=== PATIENT | male | born 1985 | race Caucasian/White ===

== ENCOUNTER 2018-10-08 17:27 | Emergency (ER) | payer MEDICAID, SELFPAY ==
[~2018-10-08] VITALS: Ht 177.8 cm; Wt 103.2 kg
[2018-10-08 17:33] VITALS: BP 127/77
[2018-10-08] MEDS ORDERED: ALBU6.7H INH (17:57)
== END 2018-10-08 18:14 | disposition home or self-care (01) ==
LOC: ER 17:27
DX: F15.10 Other stimulant abuse, uncomplicated (principal); F17.200 Nicotine dependence, unspecified, uncomplicated; Z02.89 Encounter for other administrative examinations; Z88.8 Allergy status to other drugs, medicaments and biological substances; Z79.899 Other long term (current) drug therapy
CPT/HCPCS: 99283

== ENCOUNTER 2022-08-09 21:27 | Emergency (ER) | payer MEDICAID ==
[~2022-08-09] VITALS: Ht 182.9 cm; Wt 145.0 kg
[~2022-08-09 21:27] MED LIST: ALBU6.7H14 INH
[2022-08-09 22:22] LABS: BASOPHILS # (AUTO) 0.1 X10'3 (0-0.2); BASOPHILS % (AUTO) 0.8 % (0-1); EOSINOPHILS # (AUTO) 0.3 X10'3 (0-0.9); EOSINOPHILS % (AUTO) 2.3 % (0-6); HEMATOCRIT 39.4 % (42.0-52.0); HEMOGLOBIN 13.3 g/dl (14.0-17.9); LYMPHOCYTES # (AUTO) 1.9 X10'3 (1.1-4.8); LYMPHOCYTES % (AUTO) 15.2 % (21-51); MEAN CORPUSCULAR HEMOGLOBIN 30.3 PG (27.0-31.0); MEAN CORPUSCULAR HGB CONC 33.8 g/dL (33.0-36.5); MEAN CORPUSCULAR VOLUME 89.7 FL (78-98); MEAN PLATELET VOLUME 8.7 FL (7.4-10.4); MONOCYTES # (AUTO) 0.8 X10'3 (0-0.9); MONOCYTES % (AUTO) 6.7 % (2-12); NEUTROPHILS # (AUTO) 9.3 X10'3 (1.8-7.7); PLATELET COUNT 257 X10'3 (140-440); RED CELL DISTRIBUTION WIDTH 13.9 % (11.5-14.5); WHITE BLOOD COUNT 12.4 X10'3 (4.5-11.0)
[2022-08-09 22:32] LABS: ALANINE AMINOTRANSFERASE 46 U/L (12-78); ALBUMIN 3.8 G/DL (3.4-5.0); ALKALINE PHOSPHATASE 91 IU/L (46-116); ANION GAP 7 (8-16); ASPARTATE AMINO TRANSFERASE 37 U/L (10-37); BILIRUBIN,TOTAL 0.6 MG/DL (0.1-1.0); BLOOD UREA NITROGEN 16 MG/DL (7-18); BUN/CREATININE RATIO 15.7 (5.4-32.0); CHLORIDE 101 MMOL/L (99-107); CREATININE 1.02 MG/DL (0.60-1.10); GLUCOSE 108 MG/DL (70-104); POTASSIUM 3.7 MMOL/L (3.5-5.1); SODIUM 138 MMOL/L (135-145); TOTAL CARBON DIOXIDE 30.4 MMOL/L (24-32); TOTAL PROTEIN 7.5 G/DL (6.4-8.2); eGFR 82 ML/MIN
--- NOTE | 2022-08-10 05:34 | NUR ---
PT. HAS BEEN SLEEPING WITH OCC. SNORING HEARD THROUGHOUT NIGHT, NO APPARENT DISTRESS NOTED. Addendum: 08/10/22 at 1758 by QIANNN Pt awake sitting up at side of bed eating his dinner. No distress noted.
--- NOTE | 2022-08-10 07:08 | NUR ---
GAVE REPORT TO ED OVERFLOW NURSE, CARE TRANSFERED.
--- NOTE | 2022-08-10 07:17 | NUR ---
This nurse assumed care from main ER. Pt. ambulated onto unit independently with a steady gait. Pt roomed to bed 21 and 1:1 done at bedside. Pt stated, "I'm feeling suicidal, I planned to hang myself." Pt. endorses A/VH stating, "the voices are insulting, they tell me not to eat food, that I'm going to be poisoned." Pt states he "blacks out," nurse asked if he passes out when this happens. Pt states, "no, i do things and i dont remember doing them."
--- NOTE | 2022-08-10 07:32 | NUR ---
Pt was asked to give his cell phone to staff. Pt became extremely agitated, yelling and stating "Im a Paranoid Schizophrenic, you're not taking my cell phone from me, I use this to keep evidence on how you guys treat me." Pt then jumped out of his bed to leave unit, security met pt. at the door and escorted him back to his bed. Pt was able to deescalate but has not given his phone to staff. Nurse to speak to doctor to obtain PRN for agitation.
--- NOTE | 2022-08-10 07:45 | NUR ---
Pt willingly gave cell phone to this nurse. Will inventory and place in registration safe.
[2022-08-10] MEDS ORDERED: quetiapine 100mg tablet PO SCH (07:50)
[2022-08-10] MEDS ORDERED: quetiapine 100mg tablet PO ONE (07:50)
--- NOTE | 2022-08-10 08:00 | NUR ---
One time order for seroquel 100mg obtained, pt sleeping at this time. Will let pt. sleep and adminsiter once he wakes up. Noted rise and fall of chest.
--- NOTE | 2022-08-10 08:35 | NUR ---
Seroquel adminsitered at this time. Pt was appreciative, stating seroquel has helped decrease his voices in the past.
[2022-08-10 10:13] LABS: CLARITY,URINE SLIGHTLY CLOUDY (Clear); COLOR,URINE STRAW (Yellow); GLUCOSE, URINE NEGATIVE (Neg); KETONES,URINE NEGATIVE (Neg); LEUKOCYTE ESTERASE ,URINE NEGATIVE (Neg); NITRITES, URINE NEGATIVE (Neg); OCCULT BLOOD,URINE NEGATIVE (Neg); PROTEIN,URINE NEGATIVE (Neg); UROBILINOGEN,URINE 0.2 E.U/dL (0.2-1.0)
--- NOTE | 2022-08-10 10:23 | NUR ---
Pt up using the restroom. No distress noted.
[2022-08-10 10:27] LABS: URINE AMPHETAMINE SCREEN POSITIVE (Neg); URINE BARBITUATE SCREEN NEGATIVE (Neg); URINE BENZODIAZEPINES SCREEN NEGATIVE (Neg); URINE CANNABINOID SCREEN POSITIVE (Neg); URINE COCAINE SCREEN NEGATIVE (Neg); URINE METHADONE SCREEN NEGATIVE (Neg); URINE OPIATE SCREEN NEGATIVE (Neg); URINE PHENCYCLIDINE SCREEN NEGATIVE (Neg)
[2022-08-10 10:35] LABS: UA COLLECTION TYPE VOIDED
[2022-08-10 10:57] LABS: SQUAMOUS EPITHELIAL CELL,UR MANY /LPF (FEW)
[2022-08-10 10:58] LABS: HYALINE CASTS 0-3 /LPF (NEGATIVE)
[2022-08-10 11:00] LABS: BACTERIA,URINE FEW /HPF (Neg); RBC,URINE 0-2 /HPF (0-2); TRANSITIONAL EPI CELLS,URINE FEW /HPF; WBC,URINE 0-4 /HPF (0-4)
--- NOTE | 2022-08-10 11:03 | NUR ---
Pt sleeping, noted rise and fall of chest as well as loud snoring.
--- NOTE | 2022-08-10 12:36 | NUR ---
Pt. sleeping at this time, noted rise and fall of chest with loud snoring.
--- NOTE | 2022-08-10 13:26 | NUR ---
Mother (César) and father (Tian) are at pt. bedside discussing patients spring encaser Naresh, taking steps to get pt. conserved.
[2022-08-10] MEDS ORDERED: LORazepam 1 MG tablet PO ONE ×2 (13:35→23:50)
[2022-08-10] MEDS ORDERED: haloperidol 5mg tablet PO ONE ×2 (13:35→23:50)
[2022-08-10] MEDS ORDERED: PALI234D IM (13:40)
--- NOTE | 2022-08-10 13:41 | NUR ---
During visitation with family pt. became very agitated and flipped his bedside table over with his lunch tray on it yelling, "get out, get out of here!" Family member escorted out of the facility. Pt. continued yelling stating, "I dont know why you guys would allow just anyone back here." Security called. Pt. calmed down almost instatly and is now sleeping. A one time order for haldol and ativan has been obtained but not administered. We'll see how pt is feeling when he wakes up. Pt mother called unit and apologized and said she was taking about Blues 12 year old brother being disciplined last night and it triggered Blue to get angry.
[2022-08-10] MEDS ORDERED: paliperidone palmitate inj 234 MG/1.5 ML SYRINGE IM SCH (14:56)
--- NOTE | 2022-08-10 15:08 | NUR ---
Pt sleeping on his backside, noted rise and fall of chest and loud snoring noted.
--- NOTE | 2022-08-10 15:34 | NUR ---
Pt Invega Alexenna reinstated, last dose was administered on June 14.
--- NOTE | 2022-08-10 15:51 | NUR ---
Pilo Johnsonenna IM injected. Pt tolerated well. No behaviors noted. Pt returned to sleeping.
--- NOTE | 2022-08-10 16:32 | NUR ---
Pt. up utilizing bathroom.
--- NOTE | 2022-08-10 16:39 | NUR ---
Pt awake utilizing the restroom, nurse asked pt if he is willing to change into unit scrubs. Pt did not respond to nurse, just gestured with his hands what appeared to be his middle finger. Nurse will not push the issue at this time due to previous behaviors. Pt returned to his bed.
--- NOTE | 2022-08-10 18:00 | NUR ---
Pt awake sitting up in bed eating dinner. No distress noted.
--- NOTE | 2022-08-10 19:23 | NUR ---
Patient is sleeping at shift change. Good color. Regular resp.
--- NOTE | 2022-08-10 19:48 | NUR ---
Patient awoke suddenly. Labile, calming measures used. Ativan 2 mg and Haldol 5 mg which were already on the MAR as PRN. Patient takes medications. He was also given a sandwich, juice, and he was changed into green scrubs.
--- NOTE | 2022-08-10 22:22 | NUR ---
Patient is sleeping quietly, no distress.
[2022-08-10] MEDS ORDERED: diphenhydrAMINE 25mg capsule PO ONE (23:50)
--- NOTE | 2022-08-11 00:28 | NUR ---
Patient awoke a short time ago. Acute agitation. An oral B-52 was given. The patient was compliant with med's.
--- NOTE | 2022-08-11 00:28 | NUR ---
Venice perera in [facility] - 08/11/22 at 0039 by AJ Patient awoke, he ambulated to the bathroom. Patient voided and returned to bed.
--- NOTE | 2022-08-11 01:25 | NUR ---
Patient sleep talks, awakes now and thin. He takes off his scrub top. He then lays back down after dirrection and immediately falls asleep.
--- NOTE | 2022-08-11 04:28 | NUR ---
Patient is sleeping quietly, no distress. He is snoring at times. He occasionally gets out of bed and requires redirection.
--- NOTE | 2022-08-11 05:09 | NUR ---
Patient is sleeping well in a Trendelenburg position. He sleeps better in this position than supine.
--- NOTE | 2022-08-11 07:00 | NUR ---
In and out of sleep, up to restroom. No current behavioral issues or concerns at this time. Will continue to monitor.
--- NOTE | 2022-08-11 07:07 | NUR ---
tech took pt vitals, pt BP high, tech attempted to do another BP pt would not tolerate it and pulled off the blood pressure cuff. Tech will do vitals again after breakfast
--- NOTE | 2022-08-11 07:54 | NUR ---
pt new blood pressure is 159/96, RN notified of change.
--- NOTE | 2022-08-11 08:00 | NUR ---
Pt in and out of sleep, snoring often, wakes up easily. Up for breakfast.
--- NOTE | 2022-08-11 09:00 | NUR ---
Pt up and down to restroom but mostly sleeping/snoring. No distress
--- NOTE | 2022-08-11 10:34 | NUR ---
Pt talked to mom on phone, was up at nurses station to get phone and now back to sleep snoring.
--- NOTE | 2022-08-11 11:58 | NUR ---
Pt sleeping comfortably at this time/no signs of distress
--- NOTE | 2022-08-11 13:48 | NUR ---
pt sleeping deep but has woken up scared and slightly agressive but calms down quickly so far. Pt says his snoring is waking himself up and he is having bad dreams. Dr Toribio made aware and was asked for PRN anxiety meds incase patients anxiety increases. Awaiting orders.
--- NOTE | 2022-08-11 15:06 | NUR ---
Pt in and out of sleep. Up to the bathroom. Pt requested milk and alysia crackers, eating at bedside.
[2022-08-11] MEDS ORDERED: LORazepam 2 mg/ml vial IM PRN (16:15)
--- NOTE | 2022-08-11 16:45 | NUR ---
Pt in and out of sleep. Wakes up suddenly with acute agitation, then falls back asleep. Spoke with SHELTON Harrison Ativan ordered. Pt is currently sleeping, no apparent signs of distress.
--- NOTE | 2022-08-11 17:50 | NUR ---
BP 156/105. I asked patient if he has high bp in past and he said yes. I told him I would talk to the Dr to see if we need a bp med order. Pt states, " I want to anyways so there is no point in taking medication."
--- NOTE | 2022-08-11 18:05 | NUR ---
Fabricio THOMAS, aware of BP 156/105. He is not too concerned at this point and would like us to continue to monitor and if diastolic reaches 110 to readress. Addendum: 08/11/22 at 1808 by SANTINO Physician assistant professor of spanish also made aware of patients comment about wanting to anyways so he doesn't need a blood pressure medication.
--- NOTE | 2022-08-11 18:06 | NUR ---
Pt sleeping comfortably at this time, snoring.
--- NOTE | 2022-08-11 18:07 | NUR ---
pt bp was high on initial vitals done, tech waited some time and retook the bp, bp was about the same. RN notified.
--- NOTE | 2022-08-11 19:03 | NUR ---
ASSUMED CARE OF PT FROM JOSE MCKEON. PT APPEARS TO BE SLEEPING AT THIS TIME. RR EVEN AND UNLABORED. PT HAS NO NEEDS AT THIS TIME, WILL CONTINUE WITH PLAN OF CARE.
--- NOTE | 2022-08-11 20:29 | NUR ---
Handoff report from NEREIDA Segura. Pt is sleeping
--- NOTE | 2022-08-11 20:42 | NUR ---
Introduced self to pt, pt was sleeping on his stomach. Pt stated that he is not doing well, he wants to kill himself by hanging.
--- NOTE | 2022-08-11 22:32 | NUR ---
Pt's mom called to provide information regarding pt's mental health. Mom stated pt has a tendency to get riled up if he gets stuck in ED for prolonged period of time.
--- NOTE | 2022-08-11 22:33 | NUR ---
Pt remains asleep on his stomach.
--- NOTE | 2022-08-11 23:44 | NUR ---
Pt remains asleep sonorously on his stomach
--- NOTE | 2022-08-12 00:18 | NUR ---
Pt remained asleep
--- NOTE | 2022-08-12 00:23 | NUR ---
Pt woke up for bathroom, gait steady. Pt asked for snacks, RN provided cracker and milk
--- NOTE | 2022-08-12 00:33 | NUR ---
Pt started to scream at RN stating "the voices are telling me to kill myself and everyone else!" RN provided reality check with pt. Pt became visibly agitated when RN told pt that his mom called earlier and saying she loves him very much.
--- NOTE | 2022-08-12 03:46 | NUR ---
Pt is asleep on his stomach
--- NOTE | 2022-08-12 04:35 | NUR ---
pt asleep in bed
--- NOTE | 2022-08-12 05:25 | NUR ---
Pt was gagging , RN provided an emesis bag. Pt did not have any vomitus. Pt went back to sleep
--- NOTE | 2022-08-12 06:30 | NUR ---
Assumed care of pt. Pt is sleeping on his back snoring.
[2022-08-12] MEDS: LORazepam 1 MG tablet PO PRN ×2 (08:34→19:29)
--- NOTE | 2022-08-12 08:40 | NUR ---
In an attempt to complete [facility] Suicidial assessment pt began screaming "why are you talking to me?' 'I just want to hang myself, if I leave here I will kill myself." Security called for standby. He talked about voices telling him to kill self and others. Ativan 2mg PO given. Pt took medicine and fell asleep.
--- NOTE | 2022-08-12 10:30 | NUR ---
Pt has been sleeping since breakfast. He appears to be sleeping. RR even and unlabored.
--- NOTE | 2022-08-12 12:10 | NUR ---
Pt ambulated to the bathroom. He asked for the phone said, "please" and then said, "thank you." He is accepting assistance with dialing a long distance number on the phone.
--- NOTE | 2022-08-12 14:22 | NUR ---
Pt has been sleeping since after lunch. He is observed sleeping on his back loudly snoring.
--- NOTE | 2022-08-12 16:15 | NUR ---
Pt has been sleeping. He appears comfortable/no distress noted.
--- NOTE | 2022-08-12 18:22 | NUR ---
Pt up to the bathroom then back to bed. BP is down from this morning.
--- NOTE | 2022-08-12 18:43 | NUR ---
Pt is sitting in bed at change of shift. Pt states he is here because he is suicidal. Pt reports AH telling him to kill himself "and being annoying". Pt states he is tired of the voices and has tried "every med known to man and nothing helps." Pt continues to report s/i. Pt is calm cooperative requested a snack stating he is still hungry after dinner. Pt is having milk and a sandwich.
--- NOTE | 2022-08-12 18:45 | NUR ---
Per report pts bp has been running high on previous shift. customs guard provider made aware. BP this shift is 122/87. Pt reports Ativan helps with anxiety but he does not want any right now.
--- NOTE | 2022-08-12 19:39 | NUR ---
Pt requested prn ativan and his phone. Explained to pt that phone is locked in safe and we dont have access to a mcrae to get it out tonight. Also we dont take things out of the safe usually until he is discharged. Pt understands. Pt states he would like to call his ex . Pts mothers phone number is the only number in the chart. Pt took PRN ativan and states he wants to go to sleep after he watches the movie he is watching.
--- NOTE | 2022-08-12 20:08 | NUR ---
Pt is in bed asleep, snoring quietly.
--- NOTE | 2022-08-12 21:35 | NUR ---
pt is laying on his back talking in his sleep.
--- NOTE | 2022-08-12 22:33 | NUR ---
Pt awake requesting alysia crackers and milk. Pt was provided with a small snack. Pt states "Ya I have nightmares every night, its normal." Pt was talking in his sleep about "no I dont want meds, I dont cheek my meds!" Pt thanks copywriter for his snack and announces he is going back to sleep.
--- NOTE | 2022-08-13 00:44 | NUR ---
Pt is asleep rr 16, pt talks in his sleep often.
--- NOTE | 2022-08-13 03:52 | NUR ---
Pt is awake and sitting on the side of his bed, has been sleeping but restless, talking in his sleep often. Pt states no needs at this time
--- NOTE | 2022-08-13 03:57 | NUR ---
Pt sits on the end of his bed and falls asleep while sitting up during the night and has to be waken and encouraged to lay back down.
--- NOTE | 2022-08-13 05:45 | NUR ---
Pt is bed asleep, snoring quietly. rr16 even and unlabored.
[2022-08-13 05:57] VITALS: BP 124/75
--- NOTE | 2022-08-13 09:50 | NUR ---
When visited by the [facility], patient told him " once I am released from here, I am going to find the busiest bridge and jump off into the traffice." Hold is continued and patient was reminded to be nice and polite to the nurses/staff. Patient stated that " I will be nice unless I keep being asked the same question."
--- NOTE | 2022-08-13 11:22 | NUR ---
Patient started saying that he no longer wants to be here and started being rude. Patient was educated on the importance of needing help by staff, nursing and family. Patient refused to listen and wants to leave.
== END 2022-08-13 12:35 | disposition admitted as inpatient to this hospital (09) ==
LOC: ER 21:28
DX: R45.851 Suicidal ideations (principal); Z20.822 Contact with and (suspected) exposure to COVID-19; F31.9 Bipolar disorder, unspecified; F20.9 Schizophrenia, unspecified; Z88.1 Allergy status to other antibiotic agents; Z79.899 Other long term (current) drug therapy; Z56.0 Unemployment, unspecified
CPT/HCPCS: 36415; 80053; 80305; 80320; 81001; 84443; 85025; 87811; 96372; 99285; J2426

== ENCOUNTER 2022-08-31 12:57 | Emergency (ER) | payer MEDICAID ==
[~2022-08-31] VITALS: Ht 180.3 cm; Wt 140.9 kg
[~2022-08-31 12:57] MED LIST changes: +PALI234D IM
[2022-08-31 13:42] LABS: BASOPHILS # (AUTO) 0.1 X10'3 (0-0.2); BASOPHILS % (AUTO) 0.7 % (0-1); EOSINOPHILS # (AUTO) 0.1 X10'3 (0-0.9); EOSINOPHILS % (AUTO) 1.6 % (0-6); HEMATOCRIT 43.3 % (42.0-52.0); HEMOGLOBIN 14.8 g/dl (14.0-17.9); LYMPHOCYTES # (AUTO) 1.9 X10'3 (1.1-4.8); LYMPHOCYTES % (AUTO) 22.1 % (21-51); MEAN CORPUSCULAR HEMOGLOBIN 30.4 PG (27.0-31.0); MEAN CORPUSCULAR HGB CONC 34.2 g/dL (33.0-36.5); MEAN CORPUSCULAR VOLUME 88.6 FL (78-98); MEAN PLATELET VOLUME 9.4 FL (7.4-10.4); MONOCYTES # (AUTO) 0.6 X10'3 (0-0.9); MONOCYTES % (AUTO) 7.3 % (2-12); NEUTROPHILS # (AUTO) 5.8 X10'3 (1.8-7.7); NEUTROPHILS % (AUTO) 68.3 % (42-75); PLATELET COUNT 256 X10'3 (140-440); RED BLOOD COUNT 4.89 X10'6 (4.70-6.10); RED CELL DISTRIBUTION WIDTH 13.4 % (11.5-14.5); WHITE BLOOD COUNT 8.4 X10'3 (4.5-11.0)
[2022-08-31 13:57] LABS: ALANINE AMINOTRANSFERASE 55 U/L (12-78); ALKALINE PHOSPHATASE 86 IU/L (46-116); ANION GAP 10 (8-16); ASPARTATE AMINO TRANSFERASE 26 U/L (10-37); BILIRUBIN,TOTAL 0.7 MG/DL (0.1-1.0); BLOOD UREA NITROGEN 11 MG/DL (7-18); BUN/CREATININE RATIO 9.5 (10.0-20.0); CALCIUM 9.6 MG/DL (8.5-10.1); CHLORIDE 99 MMOL/L (99-107); CREATININE 1.16 MG/DL (0.60-1.10); GLUCOSE 161 MG/DL (70-104); POTASSIUM 3.3 MMOL/L (3.5-5.1); SODIUM 137 MMOL/L (135-145); TOTAL CARBON DIOXIDE 27.6 MMOL/L (24-32); TOTAL PROTEIN 7.9 G/DL (6.4-8.2); eGFR 70 ML/MIN
[2022-08-31 14:07] LABS: ETHANOL < 0.010 GM/DL (0.0-0.010)
--- NOTE | 2022-08-31 14:26 | NUR ---
Recieved report from nurse. Pt ambulated to room. Pt undressing and placing his belongings in bags and inventoring now.
[2022-08-31] MEDS ORDERED: FLUT16SP2 BOTHNARES (14:46)
[2022-08-31] MEDS ORDERED: ALBU6.7H14 INH (14:46)
--- NOTE | 2022-08-31 15:26 | NUR ---
Patient would like [facility], Summer Valladares, and Shadow Valladares to be allowed to call and talk to nurses, release of information.
[2022-08-31] MEDS ORDERED: diphenhydrAMINE 50 mg/ml inj ONE (17:34)
[2022-08-31] MEDS ORDERED: haloperidol lactate 5mg/ml inj ONE (17:34)
[2022-08-31] MEDS ORDERED: LORazepam 2 mg/ml vial ONE ×2 (17:36→17:53)
[2022-08-31] MEDS ORDERED: OLANZapine **IM** 10 mg inj. IM ONE ×4 (17:53→20:40)
--- NOTE | 2022-08-31 18:25 | NUR ---
Patient was asked to keep his voice down as he was talking loudly on the phone about his paranoid delusions. He became red in the face and came after RN and was verbally abusive. Security was called and patient picked up bedside table and was ready to throw it at staff, but was de-escalated. IM Zyprexa, Ativan, and Benadryl given with good result.
--- NOTE | 2022-08-31 18:30 | NUR ---
Patient is responding to internal stimuli. He is constantly being redirected. He attempts to walk out of the unit. Security will be called to assist if neccessary.
[2022-08-31 19:00] LABS: CLARITY,URINE SLIGHTLY CLOUDY (Clear); COLOR,URINE YELLOW (Yellow); GLUCOSE, URINE NEGATIVE (Neg); KETONES,URINE NEGATIVE (Neg); LEUKOCYTE ESTERASE ,URINE NEGATIVE (Neg); NITRITES, URINE NEGATIVE (Neg); OCCULT BLOOD,URINE NEGATIVE (Neg); PROTEIN,URINE NEGATIVE (Neg); UROBILINOGEN,URINE 0.2 E.U/dL (0.2-1.0)
[2022-08-31 19:05] LABS: UA COLLECTION TYPE CLN CATCH MIDSTREAM
[2022-08-31 19:11] LABS: MUCUS STRANDS MANY /LPF (Neg); SQUAMOUS EPITHELIAL CELL,UR MANY /LPF (FEW)
[2022-08-31 19:12] LABS: BACTERIA,URINE FEW /HPF (Neg); RBC,URINE 0-2 /HPF (0-2)
[2022-08-31 19:16] LABS: URINE AMPHETAMINE SCREEN POSITIVE (Neg); URINE BARBITUATE SCREEN NEGATIVE (Neg); URINE BENZODIAZEPINES SCREEN NEGATIVE (Neg); URINE CANNABINOID SCREEN POSITIVE (Neg); URINE COCAINE SCREEN NEGATIVE (Neg); URINE METHADONE SCREEN NEGATIVE (Neg); URINE OPIATE SCREEN NEGATIVE (Neg); URINE PHENCYCLIDINE SCREEN NEGATIVE (Neg)
[2022-08-31] MEDS: albuterol 2.5 MG/3 ML nebule NEB SCH (20:00)
[2022-08-31] MEDS ORDERED: non-formulary drug (Albuterol Sulfate (Proventil Hfa) 2 PUFFS) INH SCH (20:00)
[2022-08-31] MEDS ORDERED: LORazepam 2 mg/ml vial IM ONE ×2 (20:40→21:45)
--- NOTE | 2022-08-31 21:04 | NUR ---
Patient was given Zyprexa 10 mg IM, Ativan 2mg. He remains angry and labile. He threatens a tech and this RN.
[2022-08-31] MEDS ORDERED: LORazepam 1 MG tablet PO ONE (21:20)
[2022-08-31] MEDS ORDERED: haloperidol lactate 5mg/ml inj IM ONE (21:45)
--- NOTE | 2022-08-31 21:45 | NUR ---
Patient jumped out of bed, became agressive and threatened staff physicallly. MD observed and orderded Haldol 10 mg IM and Ativan 2mg. MD reviewed previous Haldol administrations and ok'd the use of this medication.
--- NOTE | 2022-08-31 22:07 | NUR ---
Getachewl: This patients sister is an OPEN HEARTH FURNACE OPERATOR HELPER who is working the ER. She advises patient does not have a true allergy to Haldol. It does however look to increase patients confussion.
--- NOTE | 2022-08-31 22:09 | NUR ---
This patient will be placed on a monitor, his heart rhythm and SpO2 will be monitored along with resp and blood pressure.
--- NOTE | 2022-08-31 22:32 | NUR ---
SaO2 is 93 percent on room air. ST at 107. Resp is 18. B/P 138/89. Patient snores in a mid fowlers position. His color is good. He does intermittently awaken and bolt of bed. We are able to redirect patient.
--- NOTE | 2022-08-31 23:30 | NUR ---
Patient is sleeping quietly in a mid fowlers position. In view from nurses station.
[2022-09-01] MEDS: albuterol 2.5 MG/3 ML nebule NEB SCH ×4 (00:36→20:15)
--- NOTE | 2022-09-01 02:15 | NUR ---
Patients heart rate is in the 120's. No ectopy on the monitor, SaO2 is 93 percent on room air. Patient is sleeping quietly in a mid fowlers position.
--- NOTE | 2022-09-01 03:18 | NUR ---
Patient was placed on 02 at 2 LPM as he desaturated late morning. Snoring resp. Patient repositions self. Patient is non compliant when awake.
--- NOTE | 2022-09-01 05:18 | NUR ---
CHANGED PATIENTS LINEN, HE URINATED IN THE BED. PLACED A TOWEL ROLL UNDER HIS SHOULDERS AND HE ISN'T SNORING BADLY.
--- NOTE | 2022-09-01 05:39 | NUR ---
This patient awoke again, sat straight up and tried to get out of bed. He remains resistant to care and delusional. With much coaxing the patient did lay back in bed. He did take his own nasal cannula off along with monitor leads. The ER MD and door attendant are both aware of this patients problems and difficulty for staff.
--- NOTE | 2022-09-01 08:32 | NUR ---
Aqssumed care of patient that is snoring in mid-fowlers position. O2 at 2l/m sats:90%
[2022-09-01] MEDS: fluticasone nasal spray 16GM bottle NS SCH (10:41)
--- NOTE | 2022-09-01 11:11 | NUR ---
pt christie Blue left her number w/ tech, tech stated she wanted to leave her phone numbers with staff to be updated on any news. , .
--- NOTE | 2022-09-01 15:28 | NUR ---
Patient receiving breathing treatment from Respiratory at this time.
--- NOTE | 2022-09-01 15:31 | NUR ---
Patient's sister Summer is here visiting the patient. She says they are both homeless.
--- NOTE | 2022-09-01 18:36 | NUR ---
Recieved pt. from Steven MCKEON, pt is snoring in bed on his left side.
--- NOTE | 2022-09-01 20:30 | NUR ---
Pt. woke up asking for milk and a banana. No snacks avavilable. Pt. back to bed. Respitory came by for his nebulizer treatment.
--- NOTE | 2022-09-01 22:30 | NUR ---
Pt up several times to use the restroom and ask for snacks.
--- NOTE | 2022-09-02 02:00 | NUR ---
Pt. asleep in NAD, RR even and unlabored at this time.
[2022-09-02] MEDS: albuterol 2.5 MG/3 ML nebule NEB SCH ×5 (02:09→20:00)
--- NOTE | 2022-09-02 02:19 | NUR ---
Respitory here to give nebulizer trearment O2sat 85 when therapist arrived. Treatment given O2 placed at 2 liters. O2sat 96. Encourage pt to keep O2 on.
--- NOTE | 2022-09-02 04:09 | NUR ---
Pt. sleeping supine in bed, snoring but in no distress.
--- NOTE | 2022-09-02 05:33 | NUR ---
Pt. slept mostly through the night. Respitory therapy gave 2 treatments during the shift. Pt. in NAD.
--- NOTE | 2022-09-02 07:00 | NUR ---
Pt snoring loudly, rr even and unlabored. Study Assistant eleveted HOB.
--- NOTE | 2022-09-02 07:30 | NUR ---
Pt woke requested PRN breathing tx.
--- NOTE | 2022-09-02 08:23 | NUR ---
Respiratory at bedside.
--- NOTE | 2022-09-02 08:30 | NUR ---
Pt refused breathing tx because "its not my medication." Pt slightly agitated then saying "how am I supposed to do it while I'm eating."
[2022-09-02] MEDS: fluticasone nasal spray 16GM bottle NS SCH (09:00)
--- NOTE | 2022-09-02 10:00 | NUR ---
Pt sleeping, snoring loudly. HOB elevated. Pt ate 100% of his breakfast.
--- NOTE | 2022-09-02 12:00 | NUR ---
Pt woke and was agitated. He had phone numbers at bedside and wasnt' able to find them. "I want my fuckinng phone." "No body gives a shit!" "I want my phone and I am going home!" Pt was given phone where numbers were obtained. Pt calmed and went back to sleep.
--- NOTE | 2022-09-02 15:00 | NUR ---
Pt woke and asked for something to eat. A turkey sandwich and milk were given. Pt ate then fell back to sleep. Pt awaiting placement.
--- NOTE | 2022-09-02 16:30 | NUR ---
Pt resting comfortaly, rr even and unlabored.
--- NOTE | 2022-09-02 17:38 | NUR ---
Pt's sister called upset because her brother wasn't able to watch T.V and pt hasn't been placed yet. Scrub Wheel Operator explained how the hold process worked. Sister wasn't pacified, however excepted explanation.
--- NOTE | 2022-09-02 23:24 | NUR ---
Pt sleeping at this time. He reported AH that tell him to hurt other people. Refused Breathing treatment no HS meds ordered. He became agitated at one time with noisy pt in next bed. But rest of the time he has been cooperative and calm.
--- NOTE | 2022-09-02 23:40 | NUR ---
Pt woke up coughing offered breathing treatment pt refused.
[2022-09-03] MEDS: albuterol 2.5 MG/3 ML nebule NEB SCH ×3 (02:00→08:00)
--- NOTE | 2022-09-03 02:58 | NUR ---
Pt sleeping at this time. RT here offered Pt a treatment. Pt refused.
--- NOTE | 2022-09-03 04:23 | NUR ---
Pt requested a breathing treatment. Resp paged gave pt a treatment. Pt back to sleep at this time.
--- NOTE | 2022-09-03 07:01 | NUR ---
Pt resting in bed with his eyes closed, rr even and unlabored.
[2022-09-03] MEDS: fluticasone nasal spray 16GM bottle NS SCH (08:00)
--- NOTE | 2022-09-03 09:03 | NUR ---
Pt continues to rest comfortably with eyes closed, rr even and unlabored.
--- NOTE | 2022-09-03 11:05 | NUR ---
Pt on phone with family, upset. Pt asked them if he could stay with them and they declined (from how the pt reacted.) Pt denies auditory hallucinations "I am not hearing anything anymore!" "I am not going to tell them something is wrong when it isnt'."
--- NOTE | 2022-09-03 11:19 | NUR ---
Pt watching T.V. and is calm. Pt askeed Pt presents with linear thought process A&Ox4. Pt denies A/VH. "I'm good to go home."
--- NOTE | 2022-09-03 11:30 | NUR ---
0900 SVN held by nursing to allow pt. to sleep undisturbed
[2022-09-03 14:12] VITALS: BP 129/90
--- NOTE | 2022-09-03 14:15 | NUR ---
DISCHARGE NOTE Patient was discharged from unit at 1315. Pt was A&Ox4. Pt A/VH "I'm not hearing anything anymore." Pt denied SI/HI. Pt left with all personal belongings. Pt was picked up by his sister. Addendum: 09/03/22 at 1429 by YANICK Patient was discharged from unit at 1315. Pt's hold was up and was reevaluated. Pt no longer meets criteria for a 5150. Pt denies SI/HI, A/VH. "I'm not hearing anything anymore." Pt left with all personal belongings. Pt has an appointment at [facility] tomorrow at 1300. Pt's sister picked him up at discharge and will take him to appointment tomorrow.
[2022-09-07] MEDS ORDERED: paliperidone palmitate inj 234 MG/1.5 ML SYRINGE IM SCH (08:00)
== END 2022-09-03 13:15 | disposition home or self-care (01) ==
LOC: ER 12:57
DX: R45.850 Homicidal ideations (principal); Z20.822 Contact with and (suspected) exposure to COVID-19; F31.9 Bipolar disorder, unspecified; F20.9 Schizophrenia, unspecified; F17.200 Nicotine dependence, unspecified, uncomplicated; Z59.00 Homelessness unspecified; Z56.0 Unemployment, unspecified; Z88.8 Allergy status to other drugs, medicaments and biological substances; Z88.1 Allergy status to other antibiotic agents; Z79.899 Other long term (current) drug therapy; Z79.1 Long term (current) use of non-steroidal anti-inflammatories (NSAID)
CPT/HCPCS: 36415; 80053; 80305; 80320; 81001; 84443; 85025; 87811; 94640; 94760; 96372; 99285; J1200; J1630; J2060; J3490

== ENCOUNTER 2022-10-16 20:03 | Emergency (ER) | payer MEDICAID ==
[~2022-10-16] VITALS: Ht 180.3 cm; Wt 131.8 kg
[~2022-10-16 20:03] MED LIST changes: +FLUT16SP2 BOTHNARES
[2022-10-16 20:40] LABS: BASOPHILS # (AUTO) 0.1 X10'3 (0-0.2); EOSINOPHILS # (AUTO) 0.3 X10'3 (0-0.9); EOSINOPHILS % (AUTO) 3.1 % (0-6); HEMATOCRIT 44.2 % (42.0-52.0); HEMOGLOBIN 14.7 g/dl (14.0-17.9); LYMPHOCYTES # (AUTO) 1.7 X10'3 (1.1-4.8); LYMPHOCYTES % (AUTO) 19.4 % (21-51); MEAN CORPUSCULAR HGB CONC 33.2 g/dL (33.0-36.5); MEAN CORPUSCULAR VOLUME 90.2 FL (78-98); MEAN PLATELET VOLUME 9.6 FL (7.4-10.4); MONOCYTES # (AUTO) 0.6 X10'3 (0-0.9); MONOCYTES % (AUTO) 6.5 % (2-12); NEUTROPHILS # (AUTO) 6.2 X10'3 (1.8-7.7); PLATELET COUNT 255 X10'3 (140-440); RED BLOOD COUNT 4.89 X10'6 (4.70-6.10); RED CELL DISTRIBUTION WIDTH 13.8 % (11.5-14.5); WHITE BLOOD COUNT 8.9 X10'3 (4.5-11.0)
[2022-10-16 20:51] LABS: ALANINE AMINOTRANSFERASE 54 U/L (12-78); ALBUMIN 3.8 G/DL (3.4-5.0); ALBUMIN/GLOBULIN RATIO 1.1 (1.1-1.5); ALKALINE PHOSPHATASE 80 IU/L (46-116); ANION GAP 12 (8-16); ASPARTATE AMINO TRANSFERASE 35 U/L (10-37); BILIRUBIN,TOTAL 0.6 MG/DL (0.1-1.0); BLOOD UREA NITROGEN 11 MG/DL (7-18); BUN/CREATININE RATIO 10.6 (10.0-20.0); CALCIUM 9.5 MG/DL (8.5-10.1); CHLORIDE 101 MMOL/L (99-107); CREATININE 1.04 MG/DL (0.60-1.10); GLUCOSE 186 MG/DL (70-104); POTASSIUM 3.9 MMOL/L (3.5-5.1); SODIUM 141 MMOL/L (135-145); TOTAL CARBON DIOXIDE 28.4 MMOL/L (24-32); TOTAL PROTEIN 7.2 G/DL (6.4-8.2); eGFR 80 ML/MIN
[2022-10-16 22:46] LABS: ETHANOL < 0.010 GM/DL (0.0-0.010)
[2022-10-17 05:52] LABS: CLARITY,URINE CLEAR (Clear); COLOR,URINE YELLOW (Yellow); GLUCOSE, URINE NEGATIVE (Neg); KETONES,URINE NEGATIVE (Neg); LEUKOCYTE ESTERASE ,URINE TRACE (Neg); NITRITES, URINE NEGATIVE (Neg); OCCULT BLOOD,URINE NEGATIVE (Neg); PROTEIN,URINE NEGATIVE (Neg); UROBILINOGEN,URINE 0.2 E.U/dL (0.2-1.0)
[2022-10-17 06:00] LABS: UA COLLECTION TYPE CLN CATCH MIDSTREAM; URINE AMPHETAMINE SCREEN POSITIVE (Neg); URINE BARBITUATE SCREEN NEGATIVE (Neg); URINE BENZODIAZEPINES SCREEN NEGATIVE (Neg); URINE CANNABINOID SCREEN POSITIVE (Neg); URINE COCAINE SCREEN NEGATIVE (Neg); URINE METHADONE SCREEN NEGATIVE (Neg); URINE OPIATE SCREEN NEGATIVE (Neg); URINE PHENCYCLIDINE SCREEN NEGATIVE (Neg)
[2022-10-17 06:01] LABS: RBC,URINE NONE SEEN /HPF (0-2)
[2022-10-17 06:02] LABS: BACTERIA,URINE 1+ /HPF (Neg); MUCUS STRANDS MODERATE /LPF (Neg); SQUAMOUS EPITHELIAL CELL,UR FEW /LPF (FEW)
--- NOTE | 2022-10-17 06:29 | NUR ---
Recieved report. Pt currently sleeping, respirations even and unlabored.
--- NOTE | 2022-10-17 08:00 | NUR ---
PT resting in bed, up to use the restroom once
[2022-10-17] MEDS ORDERED: QUEtiapine 25mg tablet PO ONE ×2 (09:05→17:00)
--- NOTE | 2022-10-17 09:50 | NUR ---
PT ate breakfast and asked for seroquel prn for agitation due to another pt screaming. Order obtained and seroquel 25 mg po given
--- NOTE | 2022-10-17 11:00 | NUR ---
Pt was assessed by [facility], he became explosive and screamed and threatened to kill himself if he got let out.
--- NOTE | 2022-10-17 15:30 | NUR ---
Pt became extremely agitated due to the yelling of another patient, he jumped out of bed and began screaming and lifted up the bedside table and started slamming it up and down. Security was called and he was able to calm down without any intervention.
--- NOTE | 2022-10-17 16:13 | NUR ---
Pt's mother called and is demanding Blue's medical records be transferred to [facility]. I informed her that we cannot just send medical records to facilities because of HIPPA. I tried explaining the process of [facility] and [facility], but she states she can get the records sent wherever they want. I reiterated that we cannot just send the records.
--- NOTE | 2022-10-17 18:37 | NUR ---
pt lying in bed resting quietly after finishing dinner. no verbal or visual distress / discomfort noted
[2022-10-18] MEDS ORDERED: QUEtiapine 25mg tablet PO ONE (08:20)
[2022-10-18] MEDS ORDERED: PALI3TAB5 PO (10:23)
[2022-10-18] MEDS ORDERED: QUET50TA24 PO (10:23)
[2022-10-18] MEDS ORDERED: QUET200T31 PO (10:23)
[2022-10-18] MEDS ORDERED: ESCI20TA39 PO (10:23)
--- NOTE | 2022-10-18 16:00 | NUR ---
Pt had visit from his brother and sister. Friendly and interactive visit, with siblinings and phone call from his mother. Pt requested PRN Seroquel after visit, now resting comfortably in bed. Eating meals well, ADLs independent. Without expression of SI at this time.
[2022-10-18] MEDS: QUEtiapine 25mg tablet PO PRN (16:14)
--- NOTE | 2022-10-18 18:30 | NUR ---
ASSUMED CARE OF THE PT. PT IS LAYING IN BED AND APPEARS TO BE ASLEEP. PT DOES NOT APPEAR TO BE IN ANY DISTRESS AT THIS TIME. RR ARE EQUAL AND UNLABORED.
--- NOTE | 2022-10-18 20:59 | NUR ---
PT CONTINUES TO SLEEP IN BED. PT ROLLS OVER ADLIB. RR ARE EQUAL AND UNLABORED.
[2022-10-18] MEDS: quetiapine 100mg tablet PO SCH (22:14)
--- NOTE | 2022-10-19 00:17 | NUR ---
Patient woke up and went to the bathroom. Patient asked for a snack, a sandwhich and yogurt was given. Patient is back in bed and no angry out burst at this time.
--- NOTE | 2022-10-19 02:00 | NUR ---
Patient is resting in bed snoring with eyes closed.
--- NOTE | 2022-10-19 03:10 | NUR ---
Patient is sleeping in bed, breathing unlabored.
--- NOTE | 2022-10-19 03:50 | NUR ---
Patient is resting in the bed with eyes closed. Patient is laying on his back, normal respirations and unlabored breathing
--- NOTE | 2022-10-19 04:45 | NUR ---
Patient is in bed sleeping peacefully, no complaints or issues at this time
--- NOTE | 2022-10-19 06:36 | NUR ---
Assumed care of patient. Patient resting comfortably in hospital bed in hallway. No new complaints at this time.
--- NOTE | 2022-10-19 09:02 | NUR ---
Patient is currently resting comfortably in bed with no sign of distress.
[2022-10-19] MEDS: ESCITALOPRAM OXALATE 5 MG TABLET PO SCH (09:10)
[2022-10-19] MEDS: PALIPERIDONE 3 MG TAB.ER.24 PO SCH (09:11)
[2022-10-19] MEDS: fluticasone nasal spray 16GM bottle NS SCH (09:12)
--- NOTE | 2022-10-19 10:44 | NUR ---
Patient took morning medications with no incident. Patient endorses both SI and HI and says that the voices in his head are telling him to hurt himself and others "in many different ways", and did not want to elaborate. Patient restinng comfortably now.
--- NOTE | 2022-10-19 11:56 | NUR ---
Patient sleeping at this time.
--- NOTE | 2022-10-19 12:08 | NUR ---
Patients mom called asking several questions about medications and status of placement. Questions answered that were known, advised her I was not sure about placement. She stated "well I was promised that he would be placed. He's going to start getting very agitated if you don't place him soon." Advised her I would try and find out information for her.
--- NOTE | 2022-10-19 13:53 | NUR ---
Patient resting comfortably at this time, no signs of distress.
--- NOTE | 2022-10-19 16:00 | NUR ---
Patient woke up and ate lunch at this time. Patient also ambulated to restroom.
--- NOTE | 2022-10-19 17:48 | NUR ---
Patient was sleeping on stomach and then was awakened for dinner.
--- NOTE | 2022-10-19 18:46 | NUR ---
Accepted care of Pt, from [facility]. Pt condition was reviewed, and needs were reprioritized.
--- NOTE | 2022-10-19 19:05 | NUR ---
Pt is in bed. Breathing is even and unlabored. Will continue to monitor Pt behavior.
--- NOTE | 2022-10-19 19:49 | NUR ---
Pt sister called, requesting to speak with him. Pt declined to speak with her at this time. Callers information was written down. Summer Valladares: [phone]
[2022-10-19] MEDS: quetiapine 100mg tablet PO SCH (21:02)
--- NOTE | 2022-10-20 03:42 | NUR ---
Breathing is even and unlabored. Pt does not appear to be in any distress.
--- NOTE | 2022-10-20 07:01 | NUR ---
MIKE Zacarias - Report given. Problems reprioritized.
[2022-10-20] MEDS: PALIPERIDONE 3 MG TAB.ER.24 PO SCH (07:15)
[2022-10-20] MEDS: ESCITALOPRAM OXALATE 5 MG TABLET PO SCH (07:15)
[2022-10-20] MEDS: fluticasone nasal spray 16GM bottle NS SCH (07:16)
--- NOTE | 2022-10-20 07:36 | NUR ---
PT COMPLIANT WITH AM MEDS, PLEASANT AND APPROPRIATE. RETURNS TO SLEEP, NAD
--- NOTE | 2022-10-20 08:11 | NUR ---
PT GIVEN BREAKFAST TRAY, WOKE BRIEFLY AND RETURNED TO SLEEP
--- NOTE | 2022-10-20 08:42 | NUR ---
PT APPEARS TO BE SLEEPING, NAD, BREATHING EVEN AND UNLABORED
--- NOTE | 2022-10-20 09:04 | NUR ---
Assumed care from RN. Pt in stable condition. Pt in bed resting.
--- NOTE | 2022-10-20 09:46 | NUR ---
Pt up to RR, brushed his teeth/hair. Made his bed with clean linen. No c/o anxiety. Pt is calm, no verbal outburts noted. Pt staes he conts to hear voices. Pt states that they whisper they will kill his friends and family. Voice tell him to kill himself. Pt states he does not feel suicidal at this time.
--- NOTE | 2022-10-20 11:16 | NUR ---
Family at bedside visiting. Pt is calm and talkative.
--- NOTE | 2022-10-20 11:42 | NUR ---
Family left. Pt in bed resting. No behaviors noted.
--- NOTE | 2022-10-20 12:51 | NUR ---
Pt ate 75% of lunch. Pt laying back down resting. No c/o anxiety.
--- NOTE | 2022-10-20 13:40 | NUR ---
Pt in bed sleeping.
--- NOTE | 2022-10-20 15:40 | NUR ---
Pt is resting in the bed w/ eyes closed. Pt is laying on his back, RR even and unlabored. No s/s of SOB.
--- NOTE | 2022-10-20 16:58 | NUR ---
Pt had his sister come visit. Pt is asking about placement after D/C. Pt was reffered back to the MH worker.
--- NOTE | 2022-10-20 18:30 | NUR ---
Patient returned from main ER and placed in room 26. This patient is oriented to person, place and year. Patient is demanding, intrusive and labile.
--- NOTE | 2022-10-20 19:00 | NUR ---
Patient talks on the telephone, he uses profane language. This teletypewriter installer advises patient that his phone use would have some restriction if profane language. The patient conceitment and he is loud. The patient then agrees to quiet.
[2022-10-20] MEDS ORDERED: LORazepam 2 mg/ml vial IM ONE (19:40)
[2022-10-20] MEDS ORDERED: diphenhydrAMINE 50 mg/ml inj IM ONE (19:40)
[2022-10-20] MEDS ORDERED: haloperidol lactate 5mg/ml inj IM ONE (19:40)
--- NOTE | 2022-10-20 19:50 | NUR ---
The patient overheard the tech talking to this report writer about the patients sister calling. The patient jumbed out of bed and charged this report writer at the nurses station. Security summoned. Patient escorted back to bed. The patient is very labile, he threatens to hurt this report writer in the future. ER MD advised about this patients volatile behavior, threats to staff, etc. Ativan 2mg IM, Benadryl 50 mg IM, and Haldol 10 mg IM were ordered and will be given.
--- NOTE | 2022-10-20 20:48 | NUR ---
Patient is sedate, he is sleeping in a suping position. Good color, slight snoring resp. In direct view from nurses station. Patient will be closely observed.
[2022-10-20] MEDS: quetiapine 100mg tablet PO SCH (21:00)
--- NOTE | 2022-10-20 21:18 | NUR ---
Patient continues to sleep. He occasionally talks in sleep.
--- NOTE | 2022-10-20 22:44 | NUR ---
Patient is sleeping quietly in a supine position. Good color. Light snoring noted.
--- NOTE | 2022-10-21 00:01 | NUR ---
Patient continues to sleep quietly, no distress.
--- NOTE | 2022-10-21 02:14 | NUR ---
Patient is sleeping in a prone position. No distress. Good color.
--- NOTE | 2022-10-21 03:23 | NUR ---
This patient awoke from being sedated. He came to the nurses station and apologized to this lyric writer about this earlier physical outburst. The patient is much more linear now. He does not present as labile. The patient explaines to this lyric writer about his mental instability living on the streets for the past month or so, lack of sleep. Patient tells this lyric writer he desires mental stablization. The patient requested milk to drink, this was given. Attitional night medication was given. The patient returned to sleep.
--- NOTE | 2022-10-21 04:45 | NUR ---
Patient is sleeping quietly on his right side.
--- NOTE | 2022-10-21 05:57 | NUR ---
Patient sleeping quietly.
--- NOTE | 2022-10-21 07:03 | NUR ---
Patient resting comfortably, rr even and unlabored.
--- NOTE | 2022-10-21 09:00 | NUR ---
Patient finished his breakfast then went back to sleep. Respirations even and unlabored.
[2022-10-21] MEDS: fluticasone nasal spray 16GM bottle NS SCH (10:35)
[2022-10-21] MEDS: ESCITALOPRAM OXALATE 5 MG TABLET PO SCH (10:36)
[2022-10-21] MEDS: PALIPERIDONE 3 MG TAB.ER.24 PO SCH (10:36)
--- NOTE | 2022-10-21 11:00 | NUR ---
Patient continues to sleep, audible snoring sounds. HOB elevated as pt may have sleep apnea.
--- NOTE | 2022-10-21 17:21 | NUR ---
Pt is lying on his bed, dinner tray at bed. Pt was compliant with vitals, but did say "I am tired of being tormented." Pt states he was having a bad dream.
--- NOTE | 2022-10-21 18:56 | NUR ---
One to one with the patient who was resting. He stated that he felt fatiqued and has been having bad dreams. He stated that his mood was "okay" but he aslo endorces that he is feeling suicidal with multiple plans which he refuses to divulge. He reports AH telling him to harm himself and others.
[2022-10-21] MEDS: QUEtiapine 25mg tablet PO PRN (20:12)
[2022-10-21] MEDS: quetiapine 100mg tablet PO SCH (20:12)
--- NOTE | 2022-10-21 21:15 | NUR ---
The patient up to use the bathroom. Asked for and received a snak.
--- NOTE | 2022-10-21 22:10 | NUR ---
The patient appears to be sleeping
--- NOTE | 2022-10-21 23:21 | NUR ---
THe patient appears to be sleeping
--- NOTE | 2022-10-22 01:32 | NUR ---
The patient appears to be sleeping
--- NOTE | 2022-10-22 02:39 | NUR ---
The patient has been sitting up on the side of his bed appears to be dozing however.
--- NOTE | 2022-10-22 05:12 | NUR ---
The patient appears to be sleeping.
[2022-10-22] MEDS: ESCITALOPRAM OXALATE 5 MG TABLET PO SCH (08:11)
[2022-10-22] MEDS: PALIPERIDONE 3 MG TAB.ER.24 PO SCH (08:11)
[2022-10-22] MEDS: fluticasone nasal spray 16GM bottle NS SCH (08:12)
--- NOTE | 2022-10-22 08:13 | NUR ---
Pt is eating his breakfast- I advised I need to take his vitals now that he's awake but will get them after his breakfast. He is very polite- Pt uses "yes ma'am", "please", and "thank you" during encounter. Seems to be in a good spirits this morning.
--- NOTE | 2022-10-22 08:30 | NUR ---
Pt. asleep in bed on his right side. Pt. ate his breakfast and went back to sleep.
--- NOTE | 2022-10-22 10:30 | NUR ---
1:1 done at bedside, pt. reports SI with out a plan, pt. reports command AH telling him to kill himself. Pt. states, "the voices are really bad". RN gave pt. PRN Seroquel 50mg.
--- NOTE | 2022-10-22 12:10 | NUR ---
CALLED [facility] IN REGAR[place] TO PLACEMENT, PER [facility] THEY ARE NOT CONTRACTED WITH ANY HOSPITALS IN [facility]. THIS [facility] ADVISED THAT IF [facility] APPROVED A SHORT [facility] COULD CONSIDER THE PLACEMENT.
--- NOTE | 2022-10-22 12:30 | NUR ---
Pt. awake and eating lunch.
[2022-10-22] MEDS: QUEtiapine 25mg tablet PO PRN ×2 (13:51→16:47)
--- NOTE | 2022-10-22 14:06 | NUR ---
THIS MUCK OPERATOR CALLED [facility] TO GET APPROVAL FOR PLACEMENT. DAY @ [phone] FROM ADMIN TOOK A MESSAGE AND WILL HAVE THE AGENT CONTRACT CLERK OF [place] GET BACK TO [facility] IN REG[place] TO PLACEMENT.
--- NOTE | 2022-10-22 14:30 | NUR ---
Pt. on phone talking with his mom.
--- NOTE | 2022-10-22 16:30 | NUR ---
Pt. c/o hearing voices that are bothering him, pt. given Seroquel 50mg prn with good effect.
--- NOTE | 2022-10-22 17:00 | NUR ---
RN gave report to MIKE Gonzalez at [facility]. informed that they are considering taking the pt.
--- NOTE | 2022-10-22 18:45 | NUR ---
THE PATIENT HAS BEEN ACCEPTED AT [facility]SP[facility] 10/23 AFTER HIS 5150 IS RENEWED.
--- NOTE | 2022-10-22 19:22 | NUR ---
The patient was made aware that he would be transferred tomorrow. His family is at the bedside visiting him. He continues to undorse SI and AH. He is polite and cooperative.
--- NOTE | 2022-10-22 20:00 | NUR ---
The patient is resting on his bed
[2022-10-22] MEDS: quetiapine 100mg tablet PO SCH (20:02)
--- NOTE | 2022-10-22 22:17 | NUR ---
The patient appears to be sleeping
--- NOTE | 2022-10-23 00:11 | NUR ---
The patient appears to be sleeping
--- NOTE | 2022-10-23 06:46 | NUR ---
Pt. asleep at change of shift with snoring and rise and fall of chest.
[2022-10-23] MEDS: fluticasone nasal spray 16GM bottle NS SCH (08:00)
--- NOTE | 2022-10-23 08:31 | NUR ---
THIS MORTGAGE FIELD INSPECTOR CALLED [facility] OFFICE TO SEE HOW THEY WERE ABLE TO MAKE PLACEMENT WITH OUT TALKING TO [facility], ADRIÁN STATED "IT APPEARS IF [facility] ACCEPTED KNOWING THEY WERE NOT CONTRACTED". THIS MORTGAGE FIELD INSPECTOR WAS WANTING TO COLLECTED INFORMATION TO US IN THE FUTURE. [facility] HAS ALWAY BEEN HARD TO COMMUNICATE WITH.
--- NOTE | 2022-10-23 08:58 | NUR ---
Pt continues to be sleeping with notable snoring and rise and fall of chest.
[2022-10-23] MEDS: ESCITALOPRAM OXALATE 5 MG TABLET PO SCH (09:08)
[2022-10-23] MEDS: PALIPERIDONE 3 MG TAB.ER.24 PO SCH (09:08)
--- NOTE | 2022-10-23 09:14 | NUR ---
Pt awoken by nurse to administer medications, pt eating breakfast at this time.
--- NOTE | 2022-10-23 09:30 | NUR ---
Pt being re-evaluated by [facility] at this time.
--- NOTE | 2022-10-23 11:23 | NUR ---
Spoke with Shameka from the [facility] office, pt will discharge to [facility] this evening around 4:15pm.
--- NOTE | 2022-10-23 11:25 | NUR ---
Pt speaking with his father on the phone, Pt can be heard saying, "thank you dad, thank you for taking the knife from me and not letting me cut myself."
--- NOTE | 2022-10-23 13:28 | NUR ---
Pt resting with eyes closed on backside, noted rise and fall of chest.
--- NOTE | 2022-10-23 14:57 | NUR ---
Pt. sleeping with notable snoring with rise and fall of chest.
--- NOTE | 2022-10-23 15:51 | NUR ---
Family visiting at bedside. No acute distress noted.
--- NOTE | 2022-10-23 16:51 | NUR ---
Nurse called [facility] office due to pt not being picked up for transport. When nurse spoke with [facility] worker she informed nurse pt is not being transferred due to pt. insurance not being accepted through [facility]. Pt notified and took the information quite well.
--- NOTE | 2022-10-23 18:12 | NUR ---
Pt has been pleasent today to staff and com writer. He continues to use great manners. Pt spoke with com writer for well over 30 mins while awaiting transport to [facility], however, transfer failed due to insurance issues. Pt remained calm and collected. He states he really wants to be placed and does not want to be out on the streets where he can get access to drugs, states he wants to get "right" and stay away from drugs. Pt was already in his clothes and had his belongings, but he easily changed back into our green scrubs, and even made his own bed. He also undressed his bed and put linen in hamper and threw out his bedside garbage. Very helpful all day
--- NOTE | 2022-10-23 18:15 | NUR ---
Pt ate dinner at bedside.
--- NOTE | 2022-10-23 19:00 | NUR ---
The patient has been periodically up on the unit. Social and pleasant with staff. He is currently watching TV. He stated the voices are better than on admit but stated that he thought he heard someone call out that there was a fire but he was assured that he was only hearing voices. He is medication compliant. He has not had any acting out behaviors. He stated that he wants treatment and does not feel he is ready for discharge.
[2022-10-23] MEDS: QUEtiapine 25mg tablet PO PRN (20:03)
[2022-10-23] MEDS: quetiapine 100mg tablet PO SCH (20:03)
--- NOTE | 2022-10-23 20:09 | NUR ---
NURSE TO NURSE WITH [facility]
--- NOTE | 2022-10-23 20:16 | NUR ---
PER [facility] THE PATIENT HAS BEEN ACCEPTED AT [facility]. THEY WILL TRANSPORT THE PATIENT IN THE AM. [facility] STATED THAT THEY WILL CALL IN THE MORNING WITH A CLINICAL RESEARCH DIRECTOR TIME.
--- NOTE | 2022-10-23 21:53 | NUR ---
The patient appears to be sleeping
--- NOTE | 2022-10-23 23:24 | NUR ---
The patient appears to be sleeping
--- NOTE | 2022-10-24 00:30 | NUR ---
Received report on patient, upon shift change noted patient to be snoring and sleeping comfortably. Will continue to monitor.
--- NOTE | 2022-10-24 02:24 | NUR ---
Patient appears to be sleeping comfortably. Got up to BR then went back to sleep. No needs noted at this time. Will continue to monitor.
--- NOTE | 2022-10-24 04:25 | NUR ---
Patient sleeping. Will continue to monitor.
--- NOTE | 2022-10-24 05:31 | NUR ---
Patient is resting comfortably, snoring. No needs reported at this time. VSS. Will continue to monitor.
--- NOTE | 2022-10-24 06:43 | NUR ---
Patient sleeping prone. No distress observed. Continue to monitor.
--- NOTE | 2022-10-24 08:16 | NUR ---
Patient eating breakfast. No distress observed. Continue to monitor.
[2022-10-24] MEDS: PALIPERIDONE 3 MG TAB.ER.24 PO SCH (08:58)
[2022-10-24] MEDS: ESCITALOPRAM OXALATE 5 MG TABLET PO SCH (08:58)
[2022-10-24] MEDS: fluticasone nasal spray 16GM bottle NS SCH (08:58)
--- NOTE | 2022-10-24 09:17 | NUR ---
PER [facility] PT WILL NO LONGER BE TRANSPORTED TO [facility] THIS AM DUE TO A CONTRACT ISSUE WITH [facility]. [facility] ADVISED THEY WILL UPDATE WITH POSSIBLE NEW ACCEPTING INFORMATION IN [facility].
--- NOTE | 2022-10-24 10:03 | NUR ---
Patient awake in bed. No distress observed. Continue to monitor.
--- NOTE | 2022-10-24 12:03 | NUR ---
"Patient speaking to his mom on the phone. Patient walks up to RN and states "I need you to transfer me to a psychiatric facilty and then to a drug rehab facilty." RN advises patient "[facility] is the one who is responsible for your transfer. We are here to assist you while you wait for a facility." Patient tells his mom, "Well I'm not going to get any help here." Patient then got very agitated and and accusing staff of laughing at his psychiatric condition. Security was called for stand by. Patient wants to speak to RN's sample preparation supervisor. Tramaine, who was in the OF area went to speak with patient and patient got very angry at Tramaine also. Patient is delusional and not thinking rationally. Eventually patient sincerly apologized to RN. Patient asked for something to help him calm down. RN gave patient his PRN Seroquel. Patient calm. Continue to monitor.
[2022-10-24] MEDS: QUEtiapine 25mg tablet PO PRN ×3 (12:20→19:01)
--- NOTE | 2022-10-24 14:02 | NUR ---
Patient sleeping prone. No distress observed. Continue to monitor.
--- NOTE | 2022-10-24 19:27 | NUR ---
ASSUMED CARE 1830, PATIENT UP TALKING INTRODUCED HIMSLEF ASN ASKED FOR A PRN OF SEROQUEL, 50MG GIVEN.
[2022-10-24] MEDS: quetiapine 100mg tablet PO SCH (20:33)
--- NOTE | 2022-10-24 21:21 | NUR ---
PATIENT SLEEPING ON STOMACH, THIS WRTIER IS ABLE TO HEAR HIM SNORING LIGHTING WELLAS SEEING HIS CHEST RISE AND FALL
--- NOTE | 2022-10-24 23:27 | NUR ---
PATIENT SLEEPING ON HIS BACK SIDE, THIS RUBBER STAMP DIES INSPECTOR IS ABLE TO HEAR HIM SNORING.
--- NOTE | 2022-10-25 00:18 | NUR ---
PATIENT AMBULATED TO THE RESTROOM AND RETREATED BACK TO HIS BED
--- NOTE | 2022-10-25 01:55 | NUR ---
PATIENT IS SLEEPING, THIS TRAVEL MONEY ADVISOR CAN HEAR PATIENT SNORING
--- NOTE | 2022-10-25 03:30 | NUR ---
PATIENT IS SLEEPING/SNORING ON HIS RIGHT SIDE
--- NOTE | 2022-10-25 05:31 | NUR ---
PATIENT SLEEPING ON RIGHT SIDE, THIS EDUCATION ASSOCIATE CAN HEAR HIM SNORING
--- NOTE | 2022-10-25 06:39 | NUR ---
Patient sleeping (snoring) and laying on his left side. No distress observed. Continue to monitor.
--- NOTE | 2022-10-25 08:17 | NUR ---
Patient eating breakfast. No distress observed. Continue to monitor.
[2022-10-25] MEDS: PALIPERIDONE 3 MG TAB.ER.24 PO SCH (08:31)
[2022-10-25] MEDS: fluticasone nasal spray 16GM bottle NS SCH (08:32)
[2022-10-25] MEDS: ESCITALOPRAM OXALATE 5 MG TABLET PO SCH (08:32)
--- NOTE | 2022-10-25 10:24 | NUR ---
Patient talking on the phone. No distress observed. Continue to monitor.
--- NOTE | 2022-10-25 12:19 | NUR ---
Patient eating lunch. No distress observed. Patient has had no behaviors today. Continue to monitor.
--- NOTE | 2022-10-25 14:32 | NUR ---
Patient continues to sleep. No distress observed. Continue to monitor.
--- NOTE | 2022-10-25 16:03 | NUR ---
Patient on the phone. No distress observed. Continue to monitor.
--- NOTE | 2022-10-25 17:19 | NUR ---
Patient watching T.V. No distress observed. Patient had a good day today. Continue to monitor.
[2022-10-25] MEDS ORDERED: quetiapine 100mg tablet PO ONE (18:50)
[2022-10-25] MEDS ORDERED: LIDOcaine 5% patch TP ONE (18:50)
--- NOTE | 2022-10-25 18:53 | NUR ---
Patient is restless, he paces the unit. Patient complains of command hallucinatins to "kill yourself and others, then BBQ the corpses." The patient requests Seroquel and also a lidocaine patch for his lumbar sacrael pain. The patient is redirected. ER advised.
--- NOTE | 2022-10-25 19:33 | NUR ---
Patient still paces. A lidocaine patch has been placed to the L/S spine. The patient requests his medications early if possible.
--- NOTE | 2022-10-25 19:41 | NUR ---
Patient is now laying awake in bed. He is becoming more cooperative at this time.
[2022-10-25] MEDS: quetiapine 100mg tablet PO SCH (20:11)
--- NOTE | 2022-10-25 21:11 | NUR ---
Patient compliant with night medications. Patient allowed vital signs to be taken.
--- NOTE | 2022-10-25 21:44 | NUR ---
Venice perera in [facility] - 10/25/22 at 2146 by AJ Patient is sleeping in a supine position. A sitter is at bedside.
--- NOTE | 2022-10-25 21:47 | NUR ---
Patient is sleeping quietly. No distress, good color. He is supine in bed.
--- NOTE | 2022-10-25 22:43 | NUR ---
Patient sleeping in a supine position. W/D, good color, no distress noted.
--- NOTE | 2022-10-26 00:18 | NUR ---
Patient is sleeping in a prone position in bed. Good color.
--- NOTE | 2022-10-26 02:29 | NUR ---
Patient continues to sleep quietly in a prone position.
--- NOTE | 2022-10-26 03:40 | NUR ---
Patient sleeps quietly. No distress.
--- NOTE | 2022-10-26 04:53 | NUR ---
Patient continues to sleep on his left side. Good color. In view from nurses station.
--- NOTE | 2022-10-26 06:36 | NUR ---
Patient sleeping supine. No distress observed. Continue to monitor.
--- NOTE | 2022-10-26 08:12 | NUR ---
Patient sitting up and eating breakfast. No distress observed. Continue to monitor.
[2022-10-26] MEDS: PALIPERIDONE 3 MG TAB.ER.24 PO SCH (09:56)
[2022-10-26] MEDS: fluticasone nasal spray 16GM bottle NS SCH (09:56)
[2022-10-26] MEDS: ESCITALOPRAM OXALATE 5 MG TABLET PO SCH (09:56)
--- NOTE | 2022-10-26 10:17 | NUR ---
Patient sleeping prone in his bed. No distress observed. Continue to monitor.
--- NOTE | 2022-10-26 11:05 | NUR ---
Patient sister cam for a short visit. Patient chatting with sister. No distress observed. Continue to monitor.
--- NOTE | 2022-10-26 12:12 | NUR ---
Patient sitting up and eating lunch. No distress observed. Continue to monitor.
--- NOTE | 2022-10-26 13:32 | NUR ---
RN and Security Matta, walked patient to the shower. Patient was calm and cooperative. No distress observed. Patient was appreciative toward staff when he was done. No distress observed. Continue to monitor.
[2022-10-26] MEDS ORDERED: fluticasone nasal spray 16GM bottle NS SCH (14:29)
--- NOTE | 2022-10-26 14:51 | NUR ---
Pt. has been accepted by [facility] in [place] . This facility is requesting a Covid swab and an updated 5150 mental health hold.
--- NOTE | 2022-10-26 15:25 | NUR ---
Patient's mom visiting. No distress observed. Continue to monitor.
[2022-10-26] MEDS: LIDOcaine 5% patch TP SCH (15:28)
--- NOTE | 2022-10-26 17:11 | NUR ---
Patient watching T.V. No distress observed. Continue to monitor.
--- NOTE | 2022-10-26 17:48 | NUR ---
Patient just finished dinner. No distress observed. Continue to monitor.
[2022-10-26] MEDS: QUEtiapine 25mg tablet PO PRN (18:18)
--- NOTE | 2022-10-26 18:35 | NUR ---
Patient paces the unit. He speaks with family on the phone. Family will bring in clean clothing for this patient so he has clean clothes for his transfer tomorrow to another [facility] in [place]. Patient is cooperative at this time.
--- NOTE | 2022-10-26 19:28 | NUR ---
Patient is resting quietly in bed. No distress.
[2022-10-26] MEDS: quetiapine 100mg tablet PO SCH (20:34)
--- NOTE | 2022-10-26 20:40 | NUR ---
Patient continues to sleep. He has self repositioned. Patients father brought clothing by for this patient for his transfer tomorrow to a [facility] in [place].
--- NOTE | 2022-10-26 22:00 | NUR ---
Patient was compliant with all night medications. He is now sleeping.
--- NOTE | 2022-10-26 23:37 | NUR ---
Patient sleeping in a prone position. No distress.
--- NOTE | 2022-10-27 00:21 | NUR ---
Patient is sleeping in a prone position. No distress.
--- NOTE | 2022-10-27 01:59 | NUR ---
Patient continues to sleep in a prone position. Good color.
--- NOTE | 2022-10-27 02:54 | NUR ---
Patient continues to sleep quietly, no distress.
[2022-10-27 06:17] VITALS: BP 116/72
--- NOTE | 2022-10-27 07:33 | NUR ---
Received Pt in bed sleeping w/o distress.
[2022-10-27] MEDS: LIDOcaine 5% patch TP SCH (08:00)
--- NOTE | 2022-10-27 08:10 | NUR ---
Pt woke and ate breakfast. Received call from [facility] that their tractor trailer moving van driver would be here to pick him up and drive him to [place] [facility] facility.
[2022-10-27] MEDS: ESCITALOPRAM OXALATE 5 MG TABLET PO SCH (08:34)
[2022-10-27] MEDS: PALIPERIDONE 3 MG TAB.ER.24 PO SCH (08:34)
--- NOTE | 2022-10-27 08:54 | NUR ---
Pts belongings returned to him and he took AM meds w/o issue. Pt changed into own clothes and was escorted out by security with [facility] tow truck driver to go to [place] [facility] facility.
[2022-11-15] MEDS ORDERED: paliperidone palmitate inj 234 MG/1.5 ML SYRINGE IM SCH (08:00)
== END 2022-10-27 10:57 ==
LOC: ER 20:03
DX: R45.851 Suicidal ideations (principal); Z20.822 Contact with and (suspected) exposure to COVID-19; F31.9 Bipolar disorder, unspecified; F20.9 Schizophrenia, unspecified; Z59.00 Homelessness unspecified; Z56.0 Unemployment, unspecified; Z88.8 Allergy status to other drugs, medicaments and biological substances; Z79.899 Other long term (current) drug therapy; Z88.1 Allergy status to other antibiotic agents
CPT/HCPCS: 36415; 80053; 80305; 80320; 81001; 84443; 85025; 87811; 96372; 99285

== ENCOUNTER 2023-02-07 13:35 | Emergency (ER) | payer MEDICAID ==
[~2023-02-07 13:35] MED LIST changes: +ESCI20TA39 PO; +PALI3TAB5 PO; +QUET200T31 PO; +QUET50TA24 PO
== END 2023-02-07 16:06 | disposition left against medical advice (07) ==
LOC: ER 13:35
DX: Z04.6 Encounter for general psychiatric examination, requested by authority (principal); Z53.21 Procedure and treatment not carried out due to patient leaving prior to being seen by health care provider